=== PATIENT | male | born 1975 | race African-American/Black ===

== ENCOUNTER 2020-11-01 12:38 | Emergency (ER) | payer SELFPAY ==
[2020-11-01] MEDS ORDERED: Boostrix 0.5 ML (Tdap) VIAL ONE (12:56)
[2020-11-01] MEDS ORDERED: Lidocaine 1% 20 ML MDV ONE (12:56)
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
[2020-11-01] MEDS ORDERED: Ibuprofen 800 MG TAB ONE (14:38)
[2020-11-01] MEDS ORDERED: Bacitracin 1 PK ONE (14:38)
[2020-11-01] MEDS ORDERED: Acetaminophen 500 MG TAB ONE (14:38)
== END 2020-11-01 14:55 | disposition home or self-care (01) ==
LOC: MADERS 12:38
DX: S51.012A Laceration without foreign body of left elbow, initial encounter (principal); S61.512A Laceration without foreign body of left wrist, initial encounter; V89.2XXA Person injured in unspecified motor-vehicle accident, traffic, initial encounter
CPT/HCPCS: 12002; 90471; 90715